=== PATIENT | female | born 1945 | race Caucasian/White ===

== ENCOUNTER 2016-06-16 19:33 | Inpatient (IN) | payer OTHER ==
--- NOTE | ~2016-06-16 | HP ---
History And Physical [place] [id number] [facility] [place]. [address] NAME: JULIO GARIBAY : 45 STATUS : ADM IN [facility]#: [id number] AGE: 71 ADM/REG DATE : 06/16/16 MR#: [id number] REPORT SERV DATE: 06/17/16 DICTATED BY: AMI DAVIS DATE: 06/16/16 REPORT STATUS : Draft TRANSCRIBED BY: MODL DATE: 06/16/16 DATE OF ADMISSION: 06/16/2016 Direct admission from [facility]. REASON FOR ADMISSION: Palliative radiation. HISTORY OF PRESENT ILLNESS: This is a very unfortunate 71-year-old female. She has a known history of PAD, status post bilateral lower extremity PCI; anemia of chronic disease; history of CAD; sleep apnea; hyperlipidemia; hypothyroidism; COPD, apparently the patient states she has not ever smoked; moderate to severe malnutrition; chronic hypoxic respiratory failure, on 3 L, is oxygen dependent. Surgical history, appendectomy, colonoscopy with endoscopy, history of right hip replacement at [place], lower extremity angiogram, , bilateral cataract extractions, fem-fem bypass, PAD, ORIF left arm, multiple abdominal surgeries unclear reason why. The patient had an unfortunate presentation to [facility] for dysphagia with obstructive esophageal mass. A PEG tube was placed as a result of dysphagia. The patient was at one time on dual antiplatelet, which I will resume here. The patient, at [facility], was worked up with an endoscopy. This unfortunately had showed invasive keratinizing squamous cell carcinoma and failure to thrive. She was evaluated by multiple subspecialists. Is tolerating her tube feeds. Oncology and Radiation Oncology were consulted. She was stated was not a candidate for chemotherapy. Recommendations were made for palliative radiation. Poor living situation. Apparently, not much family sees her. Initial plans at that time were the patient to be sent to SNF, not possible due to radiation need. As a result, the patient was transferred here to [facility] for palliative radiation under the care of Dr. Wallace. I do not have a list of discharge medications in front of me from [facility], but gleaning from the records, we will resume what is ascertained. We will ask pharmacy to please ascertain discharge medications from [facility] and resume them here. The patient endorses positive chills, positive nausea, some nonbilious emesis in the past, positive diarrhea. No chest pain or chest pressure. Some chronic shortness of breath, nothing acute. Instant pain. Would like pain medications, which is reasonable. PAST MEDICAL HISTORY: See above. PAST SURGICAL HISTORY: See above. ALLERGIES: NO KNOWN DRUG ALLERGIES. History And Physical [place] [address] [place]. [address] NAME: JULIO GARIBAY : 45 STATUS : ADM IN [facility]#: [id number] AGE: 71 ADM/REG DATE : 06/16/16 MR#: [id number] REPORT SERV DATE: 06/17/16 DICTATED BY: AMI DAVIS DATE: 06/16/16 REPORT STATUS : Draft TRANSCRIBED BY: SANDEE DATE: 06/16/16 FAMILY HISTORY: Father when the patient was age 3. The patient does not know what happened. Mother at age 70 likely due to CAD complications. SOCIAL HISTORY: The patient actually is a long-term tobacco abuser. She says she was not to me, but per records, she is. She quit in 02/2016. No alcohol, no drug use. No tattoos. Yes, positive history of blood transfusions. Apparently, she lives with children. Home with assistance was her previous living situation. Apparently, she had a soft mechanical. REVIEW OF SYSTEMS: Done, see HPI. Otherwise, negative. HOME MEDICATIONS: See MAR. Continue what is relevant. OBJECTIVE: VITAL SIGNS: 143/62, respirations 16, 98.4 temperature, she is 97% on 2 L. GENERAL: No acute distress. Cachectic. HEENT: PERRLA. No scleral icterus. CARDIOVASCULAR: Regular rate and rhythm. No murmur. RESPIRATORY: Decreased breath sounds, but no wheezes, no crackles. ABDOMEN: She is a bit tender to palpation around her PEG tube site. No rebound tenderness. No peritoneal signs. EXTREMITIES: Cachectic. No edema, no ecchymosis. NEURO: She is GCS 15. A and O x4/4. PSYCH: Depressed. Anhedonia. States she is only living for her friend, who is a family doctor friend. LABORATORY DATA: Labs are all pending. CT of the abdomen and pelvis regarding her pain is pending. ASSESSMENT: 1. 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 Wallace. 2. Failure to thrive due to squamous cell carcinoma. 3. Dysphagia due to squamous cell carcinoma. 4. Peripheral arterial disease, previously on dual antiplatelets. 5. Depression. PLAN: We will go ahead and admit this patient to Oncology Service. Would defer Dr. Wallace at [facility] should be involved, as apparently, the patient has already been worked up at [facility], but if so, we will defer to Dr. Wallace. In the interim, I will get a CT abdomen, pelvis, and chest regarding her abdominal pain and staging. It is more unlikely it is metastatic. We will also have speech and swallow eval for p.o. comfort food prospect. I have gleaned that she is taking Synthroid. I will also resume dual antiplatelets, aspirin, and Plavix as well as Zoloft 50 for her depression. Placed her on Spiriva for COPD, Lipitor for her PAD and CAD. Pharmacy to please ascertain about discharge medications from [facility] and resume them here as they are not in the discharge summary from [facility]. We will place on oxycodone sustained release and Dilaudid p.r.n. for breakthrough. We will History And Physical [address] [address] NAME: JULIO GARIBAY : 45 STATUS : ADM IN [facility]#: [id number] AGE: 71 ADM/REG DATE : 06/16/16 MR#: [id number] REPORT SERV DATE: 06/17/16 DICTATED BY: AMI DAVIS DATE: 06/16/16 REPORT STATUS : Draft TRANSCRIBED BY: MODL DATE: 06/16/[address] chest to help guide radiation anatomy for Dr. Wallace. See rest of my orders. All questions were answered. Took well over 60 minutes to do. Reference [employer] and [employer]. WST/MODL i Davis DO / [id number] CC: Deonte Adame M.D.
--- NOTE | ~2016-06-16 | CONSULT ---
Radiation Oncology Consult [facility] [address] [facility] [place]. [address] NAME: JULIO GARIBAY : 45 STATUS : ADM IN [facility]#: [id number] AGE: 71 ADM/REG DATE : 06/16/16 MR#: [id number] REPORT SERV DATE: 06/17/16 DICTATED BY: DATE: REPORT STATUS : Draft TRANSCRIBED BY: MODL DATE: 06/17/16 RADIATION ONCOLOGY CONSULTATION INPATIENT CONSULTATION REASON FOR CONSULTATION: Esophageal squamous cell carcinoma. CONSULTATION: Radiation Oncology. HISTORY OF PRESENT ILLNESS: This is a 71-year-old who was admitted in [place] due to complete obstruction esophageal mass measuring 15 cm. The patient has had 38 pounds weight loss and ongoing dysphagia for quite some time prior to admission. She was found to have malnutrition along with anemia, intermittent chest pain, and chronic shortness of breath. At which time, she was intubated during the PEG tube placement. She has since been transferred here to [facility] to begin palliative radiation therapy to her obstruction esophageal mass and is currently not a chemotherapy candidate. PAST MEDICAL HISTORY: COPD, coronary artery disease, hypothyroidism, hypertension, peripheral vascular disease with stent placement in the lower extremities, sleep apnea, recently biopsy proven squamous cell carcinoma of the esophagus. PAST SURGICAL HISTORY: Recent PEG tube placement, appendectomy, right hip placement, bilateral lower extremity stent placement, femoral bypass, ORIF of the left upper extremity. FAMILY HISTORY: Noncontributory. SOCIAL HISTORY: Long history of tobacco abuse, quit in February 2016. REVIEW OF SYSTEMS: Progressive dysphagia, weight loss, anemias most likely secondary to malnutrition, shortness of breath, and chest pain. ALLERGIES: NO KNOWN DRUG ALLERGIES DOCUMENTED ON THE CHART. MEDICATIONS: Home medications; Amitiza, statin drug, levothyroxine, baby aspirin. Inpatient; folic acid, Protonix, Zofran as needed, Ativan as needed, and nebulizer. PHYSICAL EXAMINATION: GENERAL: An elderly cachetic female. Temporal wasting. Alert and oriented, in no acute distress. HEENT: Bilateral pupils are equal. Extraocular movements are intact. Oral cavity is benign. Dentures, upper plate. NEUROLOGIC: Strength in all extremities are equal. Cranial nerves are intact, 2 through 12. LYMPHATICS: No palpable submandibular cervical or supraclavicular adenopathy. LUNGS: Bilateral lung bases are decreased, remaining is clear to auscultation with normal expansion Radiation Oncology Consult [address] [place]. [address] NAME: JULIO GARIBAY : 45 STATUS : ADM IN PAT#: [id number] AGE: 71 ADM/REG DATE : 06/16/16 MR#: [id number] REPORT SERV DATE: 06/17/16 DICTATED BY: DATE: REPORT STATUS : Draft TRANSCRIBED BY: MODL DATE: 06/17/16 and effort. 2 L nasal cannula. HEART: Regular rate and rhythm without any gallops, murmurs, or rubs. ABDOMEN: Soft, nontender, with no distention. Mid upper incisions, approximated healing with left upper quadrant a PEG tube in situ. No palpable organomegaly. Bowel sounds are positive. EXTREMITIES: She moves all extremities, without edema. SKIN: No jaundice. IMPRESSION AND PLAN: A 71-year-old with squamous cell carcinoma of the esophageal obstructing mass. Plan for palliative radiation therapy 30 Gy in 10 fractions. We will arrange for the patient to come to the Department for CMSIM and treatment planning. I have discussed the overall treatment plan with the patient, and she has voiced understanding and in aggreance. Dr. Pacheco will see the patient in Department. Case management will arrange for transportation to the Department from outside facility at the time of discharge. I appreciate the opportunity to participate in her care. COREEN/SANDEE ABDULLAHI Chen / [id number] CC: Deonte Adame M.D. Eric Ellis, M.D. Sylvia Krueger, M.D. Cristal Miranda M.D.
--- NOTE | ~2016-06-16 | IDS ---
Interim Discharge Summary [facility] [address] [place]. [address] NAME: JULIO GARIBAY : 45 STATUS : ADM IN PAT#: [id number] AGE: 71 ADM/REG DATE : 06/16/16 MR#: [id number] REPORT SERV DATE: 06/23/16 DICTATED BY: SARAH BETH COPELAND DATE: 06/23/16 REPORT STATUS : Draft TRANSCRIBED BY: MODL DATE: 06/23/16 ADMISSION DATE: 06/16/2016 DISCHARGE DATE: 06/23/2016 Interim summary covers up to date June 23. REASON FOR ADMISSION: Palliative radiation. CURRENT HOSPITAL DIAGNOSES: 1. Esophageal cancer with obstructing mass. 2. Odynophagia and dysphagia, status post PEG tube. 3. Severe malnutrition, status post PEG tube. 4. Acute hypoxic/hypercapnic respiratory failure. 5. Suspected aspiration event. 6. Acute encephalopathy. 7. History of anxiety. 8. History of peripheral artery disease. HISTORY OF PRESENT ILLNESS: Please see full H and P by Dr. Noel Nichols for details regarding initial presentation and details regarding her previous stay at [facility]. HOSPITAL COURSE: 1. Esophageal cancer with obstructing mass, status post PEG tube. The patient has been seen by Radiation. She has been getting palliative XRT. Today's treatment may be held given need for BiPAP. The patient has issues with transportation, thus disposition has been an issue. Currently we are awaiting on SNF placement. 2. Odynophagia/dysphagia. The patient had a PEG tube placed at [facility]. We have been working with her on pain control. She had a fentanyl patch placed and was tolerating Dilaudid; however, yesterday she became more sedated, received a dose of Narcan, and today would have more of the same. This pain control will need to be readdressed once her mental status improves. 3. Acute hypoxic/hypercapnic respiratory failure. The patient had been on BiPAP at [facility] intermittently. Currently today her pCO2 is 80. She is also hypoxic, currently on a non-rebreather. The patient's family has been updated by Dr. García and they do wish to make her a DNR. At this point, we will try BiPAP on the floor and additional Narcan to help her mental status and monitor if a brief stint on BiPAP will help her mental status. 4. Severe malnutrition. Tube feeds have been tolerated; however, she had been reported to spit up some tube feeds colored sputum. We will hold tube feeds now pending improvement in her mental status. 5. Suspected aspiration event. We will start her on Zosyn. 6. History of peripheral artery disease. She is on Plavix. 7. Anxiety. Dr. García has started her on Klonopin. We have taper this off given the mental status and Dr. Nichols has started her on Zoloft on admission which we have continued. Again this will need to be readdressed once her mental status improves. 8. Encephalopathy. Suspect this is multifactorial given to accumulation of narcotics and Interim Discharge Summary [address] [address] NAME: JULIO GARIBAY : 45 STATUS : ADM IN PAT#: [id number] AGE: 71 ADM/REG DATE : 06/16/16 MR#: [id number] REPORT SERV DATE: 06/23/16 DICTATED BY: SARAH BETH COPELAND DATE: 06/23/16 REPORT STATUS : Draft TRANSCRIBED BY: MODSuni DATE: 06/23/16 benzodiazepines. The patient, this morning, was awake and talking, however any time she is awake, she wants to be given sedating medications. Since this is partially due to her own lack of understanding of pain control and continual shaking of bed rails and demanding of more pain medications. She was awake at the time of her Dilaudid, however obviously currently, she is much more sedated. 9. Disposition. If the patient improves, she will be needing SNF at discharge. Otherwise the patient may need hospice. DNK/MODL Sarah Beth Copeland MD / [id number] CC: MD Haider Enriquez M.D.
--- NOTE | ~2016-06-16 | DS ---
Discharge Summary [address] [place]. [address] NAME: JULIO GARIBAY : 45 STATUS : DIS IN PAT#: [id number] AGE: 71 ADM/REG DATE : 06/16/16 MR#: [id number] REPORT SERV DATE: 06/27/16 DICTATED BY: DATE: REPORT STATUS : Draft TRANSCRIBED BY: MODL DATE: 06/26/16 ADMISSION DATE: 06/16/2016 DISCHARGE DATE: 06/26/2016 DISCHARGE DIAGNOSES: 1. Esophageal cancer with obstructing mass. 2. Dysphagia/odynophagia. 3. Failure to thrive/severe malnutrition. 4. Acute encephalopathy. 5. Suspected aspiration event. 6. G-tube malfunction, resolved. 7. History of anxiety. 8. Chronic iron-deficiency anemia. 9. Peripheral artery disease history. CONSULTATIONS: 1. Dr. Cecil Pacheco, Radiation Oncology. 2. Dr. García, Palliative Care. 3. [facility]. PERTINENT TESTS AND PROCEDURES: 1. Chest x-ray, 06/22/2016, impression: Basilar atelectasis and/or infiltrates. Possible small effusions. 2. Chest x-ray, 06/23/2016, impression: Increasing infiltrate and atelectasis at right lung base. Band-like atelectasis in left lung base. Developing vascular congestion superimposed on chronic lung disease. 3. Chest x-ray, 06/24/2016, impression: Dense right basilar consolidation with probable trace right pleural fluid appearing unchanged. Left basilar atelectasis appearing slightly improved. 4. Gastrostomy tube replacement, 06/25/2016, 24-Mohawk gastrostomy tube successfully placed through existing tract. POINT OF ENTRY: The patient was a direct admission from [facility]. REASON FOR ADMISSION: Palliative Radiation. HOSPITAL COURSE: Please refer to history and physical dated 06/17/[address] Noel Nichols for complete details pertaining to the patient's initial presentation upon admission and health history. Please also refer to consultation dated 06/17/[address] Cecil Pacheco, Radiation Oncology. Please refer to interim discharge summary covering dates of service between 06/17/2016 and 06/23/[address] Gino Copeland. Discharge Summary [address] [place]. [address] NAME: JULIO GARIBAY : 45 STATUS : DIS IN PAT#: [id number] AGE: 71 ADM/REG DATE : 06/16/16 MR#: [id number] REPORT SERV DATE: 06/27/16 DICTATED BY: DATE: REPORT STATUS : Draft TRANSCRIBED BY: SANDEE DATE: 06/26/16 Briefly, the patient is a 71-year-old female, who was transferred to [facility] from [facility] for palliative radiation. The patient initially presented to [facility] for dysphagia, at which time, the patient was worked up with endoscopy which reported invasive keratinizing squamous cell carcinoma. During hospitalization at [facility], the patient was evaluated by my multiple subspecialists, to include Oncology and Radiation Oncology. It was determined the patient was not a candidate for chemotherapy and recommendations were made for palliative radiation. Initial plans were to transfer the patient to long term facility, but that was not possible secondary to need for palliative radiation, and as a result, the patient was transferred to [facility] under the care of Dr. Pacheco in Radiation Oncology. During this hospitalization, the patient's status has continued to significantly decline daily. Per recommendation of Radiation Oncology, on 06/25/2016, palliative radiation therapy was discontinued secondary to very poor performance status and the patient's inability to tolerate treatment. 1. Esophageal cancer with obstructing mass. The patient was deemed an inappropriate candidate for chemotherapy and failed attempts at palliative radiation therapy. The patient's performance status has decreased daily. Provider met with family to discuss extremely poor prognosis and recommended transition to end of life care to include comfort and supportive measures. Family met with [facility] and all agreed that it was in the patient's best interest to transfer the patient to [facility] for continued comfort measures during terminal phase of disease process. 2. Dysphagia/odynophagia. This is secondary to obstructing esophageal mass. The patient had open placement of G-tube on 05/22/2016 at [facility] due to the patient's inability to consume oral intake secondary to obstructing mass. G-tube was unintentionally removed by the patient on 06/25/2016 and was successfully replaced through existing trach by Interventional Radiology. 3. Failure to thrive/severe malnutrition. This is secondary to dysphagia and odynophagia related to esophageal obstructing mass. The patient has received tube feedings during this admission as she has been able to tolerate. The patient is essentially n.p.o. due to very high risk of aspiration. 4. Encephalopathy, metabolic, acute. Per [facility] records, in May, the patient was awake, alert, and oriented x4 prior to admission to [facility]. Encephalopathy is likely multifactorial to include likely aspiration related infection, nutritional deficit, and disease progression. The patient was placed on Zoloft upon admission to treat anxiety. This medication was weaned to stop secondary to possible adverse side effects contributing to encephalopathy. 5. Suspected aspiration events. The patient's chest x-ray indicated infiltrates were most likely related to aspiration event related to the patient's significant inability to swallow secondary to obstructing esophageal mass. The patient was placed on Zosyn and was continued up until discharge today. 6. History of anxiety. The patient has received low doses of Ativan as needed. 7. Chronic iron-deficiency anemia. At the time of discharge, the patient's hemoglobin and hematocrit were stable at 11.1 and 34.5. 8. Peripheral artery disease, status post bilateral lower extremity stents. The patient Discharge Summary [address] [address] NAME: JULIO GARIBAY : 45 STATUS : DIS IN PAT#: [id number] AGE: 71 ADM/REG DATE : 06/16/16 MR#: [id number] REPORT SERV DATE: 06/27/16 DICTATED BY: DATE: REPORT STATUS : Draft TRANSCRIBED BY: MODL DATE: 06/26/16 takes chronic Plavix. DISCHARGE CONDITION: At the time of discharge, the patient is hemodynamically stable. However, her performance status has declined significantly throughout this admission. DISCHARGE DATA: The patient remains n.p.o. status secondary to obstructing esophageal mass. DISCHARGE MEDICATIONS: To be determined per [facility] physician. DISCHARGE INSTRUCTIONS: All future plans of care will be determined per physician at [facility]. CASSI/SANDEE ABDULLAHI Martinez / [id number] CC: MD Haider Fox II, M.D.
[2016-06-16] MEDS ORDERED: LIPITOR20 PO (20:15)
[2016-06-16] MEDS ORDERED: CILOSTAZOL50 MG PO (20:15)
[2016-06-16] MEDS ORDERED: ERY-TAB250 MG PO (20:16)
[2016-06-16] MEDS ORDERED: LEVOTHYROXIN150 MCG PO (20:16)
[2016-06-16] MEDS ORDERED: HALF81 PO (20:19)
[2016-06-16] MEDS ORDERED: AMITIZA24 PO (20:19)
[2016-06-16 21:41] LABS: BASOPHILS 0.5 %; BASOPHILS ABSOLUTE 0.03 10/3/uL (0.0-0.16); EOSINOPHILS ABSOLUTE 0.13 10/3/uL (0.0-0.53); HEMATOCRIT 35.3 % (36.0-48.0); HEMOGLOBIN 11.2 g/dL (12.0-16.0); IMMATURE GRANULOCYTES 0.3 %; IMMATURE GRANULOCYTES ABSOLUTE 0.02 10/3/uL (0.0-0.11); LYMPHOCYTES 24.5 %; LYMPHOCYTES ABSOLUTE 1.57 10/3/uL (0.67-4.30); MEAN CORPUS HGB CONC 31.7 g/dL (32.0-36.0); MEAN CORPUSCULAR HEMOGLOB 28.7 pg (26.0-34.0); MEAN CORPUSCULAR VOLUME 90.5 fL (80-100); MEAN PLATELET VOLUME 9.3 fL (9.2-13.0); MONOCYTES 10.3 %; MONOCYTES ABSOLUTE 0.66 10/3/uL (0.21-1.20); NEUTROPHILS 62.4 %; NEUTROPHILS ABSOLUTE 4.01 10/3/uL (2.02-8.40); PLATELET COUNT 176 10/3/uL (150-400); RBC DISTRIBUTION WIDTH 23.9 % (12.0-16.0); WHITE BLOOD CELLS 6.4 10/3/uL (4.5-10.5)
[2016-06-16 21:45] LABS: MANUAL DIFF NO %
[2016-06-16 22:01] LABS: B NATRIURETIC PEPTIDE (BNP) 46.7 PG/ML (< 100.0)
[2016-06-16 22:03] LABS: ALBUMIN 3.1 G/DL (3.5-5.0); ALKALINE PHOSPHATASE 166 U/L (45-117); BUN (BLOOD UREA NITROGEN) 14 MG/DL (6-23); CALCIUM, SERUM 8.4 MG/DL (8.5-10.4); CHLORIDE, SERUM 104 MMOL/L (96-112); CO2 (CARBON DIOXIDE) 28 MMOL/L (24-34); CREATININE 0.37 MG/DL (0.55-1.02); GFR AFRICAN AMERICAN 125 ML/MIN (>=60); GFR NON AFRICAN AMERICAN 108 ML/MIN (>=60); GLOBULIN 3.2 G/DL (2.5-4.1); GLUCOSE, SERUM 77 MG/DL (60-99); PHOSPHORUS, SERUM 2.5 MG/DL (2.5-4.5); POTASSIUM, SERUM 4.1 MMOL/L (3.5-5.3); SGOT(AST) 18 U/L (5-40); SGPT(ALT) 47 U/L (5-65); SODIUM, SERUM 141 MMOL/L (135-148); TOTAL BILIRUBIN 0.5 MG/DL (0-1.2); TOTAL PROTEIN 6.3 G/DL (6.0-8.5); TROPONIN I <0.02 NG/ML (<0.05)
[2016-06-16 22:05] LABS: BAND NEUTROPHILS 4 %; BASOPHILS 2 %; BASOPHILS ABSOLUTE (CALC) 0.13 10/3/uL (0.0-0.16); EOSINOPHILS 2 %; EOSINOPHILS ABSOLUTE (CALC) 0.13 10/3/uL (0.0-0.53); LYMPHOCYTES 22 %; LYMPHOCYTES ABSOLUTE (CALC) 1.41 10/3/uL (0.67-4.30); MONOCYTES 14 %; NEUTROPHILS ABSOLUTE (CALC) 3.84 10/3/uL (2.02-8.40); PLATELET ESTIMATE ADQ (ADEQUATE); SEGMENTED NEUTROPHIL (0) 56 %; TOTAL NUCLEATED CELLS 100
[2016-06-16 22:06] LABS: GIANT PLATELET RARE; OVALOCYTES 1+ (3-10/OIF) (0-2/OIF); SCHISTOCYTES OCC (0-2/OIF); SPHEROCYTES FEW (3-10/OIF)
[2016-06-16 22:23] LABS: GLYCOHEMOGLOBIN (HbA1c) 5.1 % (4.7-6.1)
[2016-06-16 22:58] LABS: PROCALCITONIN 0.06 ng/mL (<0.5)
[2016-06-17 04:01] LABS: BASOPHILS 0.7 %; BASOPHILS ABSOLUTE 0.04 10/3/uL (0.0-0.16); EOSINOPHILS 3.2 %; EOSINOPHILS ABSOLUTE 0.18 10/3/uL (0.0-0.53); HEMOGLOBIN 11.5 g/dL (12.0-16.0); IMMATURE GRANULOCYTES 0.5 %; IMMATURE GRANULOCYTES ABSOLUTE 0.03 10/3/uL (0.0-0.11); LYMPHOCYTES 25.9 %; LYMPHOCYTES ABSOLUTE 1.48 10/3/uL (0.67-4.30); MEAN CORPUS HGB CONC 31.9 g/dL (32.0-36.0); MEAN CORPUSCULAR HEMOGLOB 29.3 pg (26.0-34.0); MEAN CORPUSCULAR VOLUME 91.6 fL (80-100); MEAN PLATELET VOLUME 9.1 fL (9.2-13.0); MONOCYTES 11.2 %; MONOCYTES ABSOLUTE 0.64 10/3/uL (0.21-1.20); NEUTROPHILS 58.5 %; NEUTROPHILS ABSOLUTE 3.34 10/3/uL (2.02-8.40); PLATELET COUNT 198 10/3/uL (150-400); RBC DISTRIBUTION WIDTH 23.7 % (12.0-16.0); RED CELL COUNT 3.93 10/6/uL (4.0-5.6); WHITE BLOOD CELLS 5.7 10/3/uL (4.5-10.5)
[2016-06-17 04:02] LABS: MANUAL DIFF NO %
[2016-06-17 04:13] LABS: BUN (BLOOD UREA NITROGEN) 15 MG/DL (6-23); CALCIUM, SERUM 8.9 MG/DL (8.5-10.4); CHLORIDE, SERUM 104 MMOL/L (96-112); CO2 (CARBON DIOXIDE) 29 MMOL/L (24-34); CREATININE 0.49 MG/DL (0.55-1.02); GFR AFRICAN AMERICAN 114 ML/MIN (>=60); GFR NON AFRICAN AMERICAN 98 ML/MIN (>=60); GLUCOSE, SERUM 90 MG/DL (60-99); PHOSPHORUS, SERUM 2.4 MG/DL (2.5-4.5); SODIUM, SERUM 140 MMOL/L (135-148)
[2016-06-17 04:34] LABS: PLATELET ESTIMATE ADQ (ADEQUATE)
[2016-06-17 04:35] LABS: ACANTHOCYTES OCC (0-2/OIF)
[2016-06-17 08:53] LABS: ASCORBIC ACID (UR NOT ORDER) 40 (NEG); BILIRUBIN, URINE NEGATIVE (NEG); KETONE, URINE NEGATIVE (NEG); LEUKOCYTE ESTERASE(NOT OR TRACE (NEG); WBC (NOT ORDERED) (RFLEX) 9 (0-5)
[2016-06-20 05:25] LABS: BASOPHILS 0.3 %; BASOPHILS ABSOLUTE 0.02 10/3/uL (0.0-0.16); EOSINOPHILS 2.9 %; EOSINOPHILS ABSOLUTE 0.19 10/3/uL (0.0-0.53); HEMOGLOBIN 10.3 g/dL (12.0-16.0); IMMATURE GRANULOCYTES 0.3 %; IMMATURE GRANULOCYTES ABSOLUTE 0.02 10/3/uL (0.0-0.11); LYMPHOCYTES ABSOLUTE 1.19 10/3/uL (0.67-4.30); MEAN CORPUS HGB CONC 31.2 g/dL (32.0-36.0); MEAN CORPUSCULAR HEMOGLOB 29.1 pg (26.0-34.0); MEAN CORPUSCULAR VOLUME 93.2 fL (80-100); MEAN PLATELET VOLUME 9.1 fL (9.2-13.0); MONOCYTES 8.2 %; MONOCYTES ABSOLUTE 0.54 10/3/uL (0.21-1.20); NEUTROPHILS 70.3 %; NEUTROPHILS ABSOLUTE 4.64 10/3/uL (2.02-8.40); PLATELET COUNT 202 10/3/uL (150-400); RBC DISTRIBUTION WIDTH 23.1 % (12.0-16.0); RED CELL COUNT 3.54 10/6/uL (4.0-5.6); WHITE BLOOD CELLS 6.6 10/3/uL (4.5-10.5)
[2016-06-20 05:30] LABS: MANUAL DIFF NO %
[2016-06-20 05:35] LABS: BUN (BLOOD UREA NITROGEN) 16 MG/DL (6-23); CHLORIDE, SERUM 99 MMOL/L (96-112); CO2 (CARBON DIOXIDE) 29 MMOL/L (24-34); GFR AFRICAN AMERICAN 121 ML/MIN (>=60); GFR NON AFRICAN AMERICAN 105 ML/MIN (>=60); PHOSPHORUS, SERUM 2.2 MG/DL (2.5-4.5); POTASSIUM, SERUM 3.9 MMOL/L (3.5-5.3); SODIUM, SERUM 137 MMOL/L (135-148)
[2016-06-20 05:41] LABS: CALCIUM, SERUM 7.9 MG/DL (8.5-10.4); GLUCOSE, SERUM 121 MG/DL (60-99)
[2016-06-20 06:09] LABS: PLATELET ESTIMATE ADQ (ADEQUATE)
[2016-06-21 07:40] LABS: BUN (BLOOD UREA NITROGEN) 13 MG/DL (6-23); CALCIUM, SERUM 7.9 MG/DL (8.5-10.4); CHLORIDE, SERUM 96 MMOL/L (96-112); CO2 (CARBON DIOXIDE) 33 MMOL/L (24-34); CREATININE 0.37 MG/DL (0.55-1.02); GFR AFRICAN AMERICAN 125 ML/MIN (>=60); GFR NON AFRICAN AMERICAN 108 ML/MIN (>=60); GLUCOSE, SERUM 145 MG/DL (60-99); PHOSPHORUS, SERUM 2.8 MG/DL (2.5-4.5); POTASSIUM, SERUM 4.2 MMOL/L (3.5-5.3); SODIUM, SERUM 135 MMOL/L (135-148)
[2016-06-21 07:41] LABS: BASOPHILS 0.2 %; BASOPHILS ABSOLUTE 0.01 10/3/uL (0.0-0.16); EOSINOPHILS 0.7 %; EOSINOPHILS ABSOLUTE 0.04 10/3/uL (0.0-0.53); HEMATOCRIT 34.3 % (36.0-48.0); HEMOGLOBIN 10.7 g/dL (12.0-16.0); IMMATURE GRANULOCYTES 0.3 %; IMMATURE GRANULOCYTES ABSOLUTE 0.02 10/3/uL (0.0-0.11); LYMPHOCYTES 15.1 %; LYMPHOCYTES ABSOLUTE 0.89 10/3/uL (0.67-4.30); MEAN CORPUS HGB CONC 31.2 g/dL (32.0-36.0); MEAN CORPUSCULAR HEMOGLOB 29.6 pg (26.0-34.0); MEAN CORPUSCULAR VOLUME 94.8 fL (80-100); MEAN PLATELET VOLUME 8.9 fL (9.2-13.0); MONOCYTES 10.8 %; MONOCYTES ABSOLUTE 0.64 10/3/uL (0.21-1.20); NEUTROPHILS 72.9 %; PLATELET COUNT 226 10/3/uL (150-400); RBC DISTRIBUTION WIDTH 22.7 % (12.0-16.0); RED CELL COUNT 3.62 10/6/uL (4.0-5.6); WHITE BLOOD CELLS 5.9 10/3/uL (4.5-10.5)
[2016-06-21 07:44] LABS: MANUAL DIFF NO %
[2016-06-21 08:12] LABS: PLATELET ESTIMATE ADQ (ADEQUATE)
[2016-06-22 07:25] LABS: BASOPHILS 0.3 %; BASOPHILS ABSOLUTE 0.02 10/3/uL (0.0-0.16); EOSINOPHILS 0 %; HEMOGLOBIN 11.1 g/dL (12.0-16.0); IMMATURE GRANULOCYTES 0.3 %; IMMATURE GRANULOCYTES ABSOLUTE 0.02 10/3/uL (0.0-0.11); LYMPHOCYTES 8.8 %; LYMPHOCYTES ABSOLUTE 0.68 10/3/uL (0.67-4.30); MEAN CORPUS HGB CONC 31.7 g/dL (32.0-36.0); MEAN CORPUSCULAR HEMOGLOB 30.2 pg (26.0-34.0); MEAN CORPUSCULAR VOLUME 95.1 fL (80-100); MEAN PLATELET VOLUME 8.9 fL (9.2-13.0); MONOCYTES ABSOLUTE 0.31 10/3/uL (0.21-1.20); NEUTROPHILS 86.6 %; NEUTROPHILS ABSOLUTE 6.68 10/3/uL (2.02-8.40); PLATELET COUNT 253 10/3/uL (150-400); RBC DISTRIBUTION WIDTH 21.3 % (12.0-16.0); RED CELL COUNT 3.68 10/6/uL (4.0-5.6); WHITE BLOOD CELLS 7.7 10/3/uL (4.5-10.5)
[2016-06-22 07:27] LABS: MANUAL DIFF NO %
[2016-06-22 07:42] LABS: BUN (BLOOD UREA NITROGEN) 12 MG/DL (6-23); CALCIUM, SERUM 8.6 MG/DL (8.5-10.4); CHLORIDE, SERUM 95 MMOL/L (96-112); CO2 (CARBON DIOXIDE) 35 MMOL/L (24-34); CREATININE 0.39 MG/DL (0.55-1.02); GFR AFRICAN AMERICAN 122 ML/MIN (>=60); GFR NON AFRICAN AMERICAN 106 ML/MIN (>=60); GLUCOSE, SERUM 165 MG/DL (60-99); PHOSPHORUS, SERUM 2.4 MG/DL (2.5-4.5); POTASSIUM, SERUM 4.3 MMOL/L (3.5-5.3); SODIUM, SERUM 135 MMOL/L (135-148)
[2016-06-23 11:12] LABS: BASOPHILS 0.1 %; BASOPHILS ABSOLUTE 0.01 10/3/uL (0.0-0.16); EOSINOPHILS 0.1 %; EOSINOPHILS ABSOLUTE 0.01 10/3/uL (0.0-0.53); HEMATOCRIT 35.1 % (36.0-48.0); HEMOGLOBIN 11.1 g/dL (12.0-16.0); IMMATURE GRANULOCYTES 0.2 %; IMMATURE GRANULOCYTES ABSOLUTE 0.02 10/3/uL (0.0-0.11); LYMPHOCYTES 8.2 %; LYMPHOCYTES ABSOLUTE 0.76 10/3/uL (0.67-4.30); MEAN CORPUS HGB CONC 31.6 g/dL (32.0-36.0); MEAN CORPUSCULAR HEMOGLOB 30.3 pg (26.0-34.0); MEAN CORPUSCULAR VOLUME 95.9 fL (80-100); MEAN PLATELET VOLUME 8.6 fL (9.2-13.0); MONOCYTES 5.8 %; MONOCYTES ABSOLUTE 0.54 10/3/uL (0.21-1.20); NEUTROPHILS 85.6 %; NEUTROPHILS ABSOLUTE 7.92 10/3/uL (2.02-8.40); PLATELET COUNT 259 10/3/uL (150-400); RBC DISTRIBUTION WIDTH 20.6 % (12.0-16.0); RED CELL COUNT 3.66 10/6/uL (4.0-5.6); WHITE BLOOD CELLS 9.3 10/3/uL (4.5-10.5)
[2016-06-23 11:14] LABS: MANUAL DIFF NO %
[2016-06-23 11:18] LABS: ALLENS TEST Pos; BE (BASE EXCESS) 12.8 MEQ/L (0 +/- 2.5); CARBOXYHEMOGLOBIN 0.6 % (0-3); DEVICE NRB; HCO3 (ACTUAL BICARBONATE) 41.8 MEQ/L (23-27); HEMOBLOGIN CONTENT 11.5 G/DL (12-16); INSTRUMENT SERIAL # 8083; METHEMOGLOBIN 0.3 % (0-3); O2 CONTENT 15.9 VOL% (18-24); PCO2 (CO2 TENSION) 82 MMHG (35-45); PO2 (O2 TENSION) 113 MMHG (79-93); SAMPLE Arterial; pH 7.32 (7.37-7.43)
[2016-06-23 11:29] LABS: BUN (BLOOD UREA NITROGEN) 11 MG/DL (6-23); CALCIUM, SERUM 8.6 MG/DL (8.5-10.4); CHLORIDE, SERUM 91 MMOL/L (96-112); CO2 (CARBON DIOXIDE) 39 MMOL/L (24-34); CREATININE 0.32 MG/DL (0.55-1.02); GFR AFRICAN AMERICAN 131 ML/MIN (>=60); GFR NON AFRICAN AMERICAN 113 ML/MIN (>=60); POTASSIUM, SERUM 4.4 MMOL/L (3.5-5.3); SGOT(AST) 42 U/L (5-40); SGPT(ALT) 55 U/L (5-65); SODIUM, SERUM 136 MMOL/L (135-148); TOTAL BILIRUBIN 0.5 MG/DL (0-1.2)
[2016-06-23 11:31] LABS: A/G RATIO 0.6 (0.7-1.9); ALBUMIN 2.3 G/DL (3.5-5.0); ALKALINE PHOSPHATASE 229 U/L (45-117); GLOBULIN 3.7 G/DL (2.5-4.1); GLUCOSE, SERUM 123 MG/DL (60-99)
[2016-06-23 14:46] LABS: BE (BASE EXCESS) 13.5 MEQ/L (0 +/- 2.5); CARBOXYHEMOGLOBIN 0.5 % (0-3); HCO3 (ACTUAL BICARBONATE) 41.1 MEQ/L (23-27); HEMOBLOGIN CONTENT 10.3 G/DL (12-16); INSTRUMENT SERIAL # 8083; METHEMOGLOBIN 0.2 % (0-3); PCO2 (CO2 TENSION) 72 MMHG (35-45); PO2 (O2 TENSION) 83 MMHG (79-93); pH 7.37 (7.37-7.43)
[2016-06-23 14:47] LABS: SAMPLE Arterial
[2016-06-24 05:00] LABS: BASOPHILS 0.3 %; BASOPHILS ABSOLUTE 0.02 10/3/uL (0.0-0.16); EOSINOPHILS 0.4 %; EOSINOPHILS ABSOLUTE 0.03 10/3/uL (0.0-0.53); HEMATOCRIT 34.4 % (36.0-48.0); HEMOGLOBIN 10.7 g/dL (12.0-16.0); IMMATURE GRANULOCYTES 0.4 %; IMMATURE GRANULOCYTES ABSOLUTE 0.03 10/3/uL (0.0-0.11); LYMPHOCYTES 12.3 %; LYMPHOCYTES ABSOLUTE 0.97 10/3/uL (0.67-4.30); MEAN CORPUS HGB CONC 31.1 g/dL (32.0-36.0); MEAN CORPUSCULAR HEMOGLOB 29.8 pg (26.0-34.0); MEAN CORPUSCULAR VOLUME 95.8 fL (80-100); MEAN PLATELET VOLUME 8.8 fL (9.2-13.0); MONOCYTES 13.1 %; MONOCYTES ABSOLUTE 1.04 10/3/uL (0.21-1.20); NEUTROPHILS 73.5 %; NEUTROPHILS ABSOLUTE 5.82 10/3/uL (2.02-8.40); PLATELET COUNT 286 10/3/uL (150-400); RBC DISTRIBUTION WIDTH 21.2 % (12.0-16.0); RED CELL COUNT 3.59 10/6/uL (4.0-5.6); WHITE BLOOD CELLS 7.9 10/3/uL (4.5-10.5)
[2016-06-24 05:07] LABS: MANUAL DIFF NO %
[2016-06-24 05:22] LABS: BUN (BLOOD UREA NITROGEN) 11 MG/DL (6-23); CALCIUM, SERUM 8.6 MG/DL (8.5-10.4); CHLORIDE, SERUM 94 MMOL/L (96-112); CREATININE 0.37 MG/DL (0.55-1.02); GFR AFRICAN AMERICAN 125 ML/MIN (>=60); GFR NON AFRICAN AMERICAN 108 ML/MIN (>=60); GLUCOSE, SERUM 120 MG/DL (60-99); PHOSPHORUS, SERUM 1.8 MG/DL (2.5-4.5); POTASSIUM, SERUM 4.2 MMOL/L (3.5-5.3); SODIUM, SERUM 138 MMOL/L (135-148)
[2016-06-24 05:28] LABS: CO2 (CARBON DIOXIDE) 41 MMOL/L (24-34)
[2016-06-24 10:44] LABS: ALLENS TEST Pos; BE (BASE EXCESS) 14.2 MEQ/L (0 +/- 2.5); CARBOXYHEMOGLOBIN 0.3 % (0-3); DEVICE HFNC; HCO3 (ACTUAL BICARBONATE) 41.8 MEQ/L (23-27); INSTRUMENT SERIAL # 8083; METHEMOGLOBIN 0.1 % (0-3); O2 CONTENT 15.3 VOL% (18-24); PCO2 (CO2 TENSION) 70 MMHG (35-45); PO2 (O2 TENSION) 114 MMHG (79-93); SAMPLE Arterial; pH 7.39 (7.37-7.43)
[2016-06-24 16:27] LABS: PROCALCITONIN <0.05 ng/mL (<0.5)
[2016-06-24 18:53] LABS: ALLENS TEST Pos; BE (BASE EXCESS) 13.5 MEQ/L (0 +/- 2.5); CARBOXYHEMOGLOBIN 0.6 % (0-3); DEVICE NC; HEMOBLOGIN CONTENT 12.3 G/DL (12-16); INSTRUMENT SERIAL # 8083; METHEMOGLOBIN 0.1 % (0-3); O2 CONTENT 15.1 VOL% (18-24); PCO2 (CO2 TENSION) 42 MMHG (35-45); PO2 (O2 TENSION) 48 MMHG (79-93); SAMPLE Arterial; pH 7.56 (7.37-7.43)
[2016-06-25 08:18] LABS: BASOPHILS 0.4 %; BASOPHILS ABSOLUTE 0.03 10/3/uL (0.0-0.16); EOSINOPHILS 0.3 %; EOSINOPHILS ABSOLUTE 0.02 10/3/uL (0.0-0.53); IMMATURE GRANULOCYTES 0.6 %; IMMATURE GRANULOCYTES ABSOLUTE 0.04 10/3/uL (0.0-0.11); LYMPHOCYTES 9.5 %; LYMPHOCYTES ABSOLUTE 0.68 10/3/uL (0.67-4.30); MEAN CORPUS HGB CONC 31.7 g/dL (32.0-36.0); MEAN CORPUSCULAR HEMOGLOB 29.4 pg (26.0-34.0); MEAN PLATELET VOLUME 8.7 fL (9.2-13.0); MONOCYTES 12.8 %; MONOCYTES ABSOLUTE 0.92 10/3/uL (0.21-1.20); NEUTROPHILS 76.4 %; PLATELET COUNT 250 10/3/uL (150-400); RED CELL COUNT 4.08 10/6/uL (4.0-5.6); WHITE BLOOD CELLS 7.2 10/3/uL (4.5-10.5)
[2016-06-25 08:19] LABS: HEMATOCRIT 37.9 % (36.0-48.0); MANUAL DIFF NO %; MEAN CORPUSCULAR VOLUME 92.9 fL (80-100)
[2016-06-25 08:40] LABS: A/G RATIO 0.6 (0.7-1.9); ALBUMIN 2.3 G/DL (3.5-5.0); ALKALINE PHOSPHATASE 200 U/L (45-117); BUN (BLOOD UREA NITROGEN) 8 MG/DL (6-23); CALCIUM, SERUM 8.4 MG/DL (8.5-10.4); CHLORIDE, SERUM 100 MMOL/L (96-112); CO2 (CARBON DIOXIDE) 33 MMOL/L (24-34); CREATININE 0.38 MG/DL (0.55-1.02); DIRECT BILIRUBIN 0.1 MG/DL (0.0-0.4); GFR AFRICAN AMERICAN 124 ML/MIN (>=60); GFR NON AFRICAN AMERICAN 107 ML/MIN (>=60); GLOBULIN 3.7 G/DL (2.5-4.1); GLUCOSE, SERUM 124 MG/DL (60-99); INDIRECT BILIRUBIN(NOT ORDER) 0.2 MG/DL (0.1-0.9); PHOSPHORUS, SERUM 1.5 MG/DL (2.5-4.5); POTASSIUM, SERUM 3.5 MMOL/L (3.5-5.3); SGOT(AST) 26 U/L (5-40); SGPT(ALT) 46 U/L (5-65); SODIUM, SERUM 138 MMOL/L (135-148); TOTAL BILIRUBIN 0.3 MG/DL (0-1.2)
[2016-06-26 05:14] LABS: BASOPHILS 0.5 %; BASOPHILS ABSOLUTE 0.04 10/3/uL (0.0-0.16); EOSINOPHILS 1.2 %; EOSINOPHILS ABSOLUTE 0.09 10/3/uL (0.0-0.53); HEMATOCRIT 34.5 % (36.0-48.0); HEMOGLOBIN 11.1 g/dL (12.0-16.0); IMMATURE GRANULOCYTES 0.8 %; IMMATURE GRANULOCYTES ABSOLUTE 0.06 10/3/uL (0.0-0.11); LYMPHOCYTES 13.7 %; LYMPHOCYTES ABSOLUTE 1.07 10/3/uL (0.67-4.30); MEAN CORPUS HGB CONC 32.2 g/dL (32.0-36.0); MEAN CORPUSCULAR HEMOGLOB 29.4 pg (26.0-34.0); MEAN CORPUSCULAR VOLUME 91.5 fL (80-100); MEAN PLATELET VOLUME 8.6 fL (9.2-13.0); MONOCYTES 11.6 %; NEUTROPHILS 72.2 %; NEUTROPHILS ABSOLUTE 5.63 10/3/uL (2.02-8.40); RED CELL COUNT 3.77 10/6/uL (4.0-5.6); WHITE BLOOD CELLS 7.8 10/3/uL (4.5-10.5)
[2016-06-26 05:16] LABS: MANUAL DIFF NO %; PLATELET COUNT 331 10/3/uL (150-400)
[2016-06-26 05:27] LABS: BUN (BLOOD UREA NITROGEN) 9 MG/DL (6-23); CALCIUM, SERUM 8.9 MG/DL (8.5-10.4); CHLORIDE, SERUM 101 MMOL/L (96-112); CO2 (CARBON DIOXIDE) 31 MMOL/L (24-34); CREATININE 0.38 MG/DL (0.55-1.02); GFR AFRICAN AMERICAN 124 ML/MIN (>=60); GFR NON AFRICAN AMERICAN 107 ML/MIN (>=60); GLUCOSE, SERUM 108 MG/DL (60-99); PHOSPHORUS, SERUM 2.6 MG/DL (2.5-4.5); POTASSIUM, SERUM 3.3 MMOL/L (3.5-5.3); SODIUM, SERUM 139 MMOL/L (135-148)
== END 2016-06-26 20:00 | disposition hospice, inpatient (51) | DRG 374 ==
LOC: 4EA 19:33
PROVIDERS: Internal Medicine
PROC: 0D20XUZ Change Feeding Device in Upper Intestinal Tract, External Approach (ICD-10-PCS; principal; 2016-06-25)
DX: C15.9 Malignant neoplasm of esophagus, unspecified (principal); E43 Unspecified severe protein-calorie malnutrition; J96.21 Acute and chronic respiratory failure with hypoxia; G93.41 Metabolic encephalopathy; K22.2 Esophageal obstruction; Z68.1 Body mass index [BMI] 19.9 or less, adult; K94.23 Gastrostomy malfunction; F32.9 Major depressive disorder, single episode, unspecified; Z51.5 Encounter for palliative care; R62.7 Adult failure to thrive; I73.9 Peripheral vascular disease, unspecified; E03.9 Hypothyroidism, unspecified; F41.9 Anxiety disorder, unspecified; E78.5 Hyperlipidemia, unspecified; G47.33 Obstructive sleep apnea (adult) (pediatric); J44.9 Chronic obstructive pulmonary disease, unspecified
CPT/HCPCS: 36600; 49450; 71010; 77290; 77295; 77300; 77334; 77336; 77412; 80048; 80053; 81001; 82140; 82248; 82805; 82962; 83036; 83735; 83880; 84100; 84145; 84443; 84484; 85025; 93005; 94640; 94660; 97110-GP; 97116-GP; 97161-GP; 97166-GO; 97530-GP; 97535-GO; A9270-GY; C1725; C1769; J1170; J2405; J2543; Q9967